=== PATIENT | female | born 1955 | race Asian ===

== ENCOUNTER → 2016-07-08 | Outpatient (CLI) | payer OTHER ==
--- NOTE | 2016-07-09 07:51 | MM ---
Reason for exam: screening (asymptomatic). Last mammogram was performed 2 years and 2 months ago. History: Patient is postmenopausal. Took estrogen for 1 month. Took progesterone for 1 month. Physical Findings: A clinical breast exam by your physician is recommended on an annual basis and results should be correlated with mammographic findings. MG Screening Mammo w CAD Bilateral CC and MLO view(s) were taken. Prior study comparison: May 20, 2014, bilateral MG screening mammo w CAD. July 26, 2011, bilateral digital screening mammo w/CAD. The breast tissue is heterogeneously dense. This may lower the sensitivity of mammography. There is no discrete abnormality. No significant changes when compared with prior studies. ASSESSMENT: Negative, BI-RAD 1 RECOMMENDATION: Routine screening mammogram of both breasts in 1 year.
== END | disposition home or self-care (01) ==
LOC: RADMAMWWP 08:45
PROVIDERS: ATTEND Family Medicine
DX: Z12.31 Encounter for screening mammogram for malignant neoplasm of breast (principal)

== ENCOUNTER → 2018-04-12 | Outpatient (CLI) | payer OTHER ==
--- NOTE | 2018-04-13 08:42 | MM ---
Reason for exam: screening (asymptomatic). Last mammogram was performed 1 year and 9 months ago. History: Patient is postmenopausal. Took estrogen for 1 month. Took progesterone for 1 month. Physical Findings: A clinical breast exam by your physician is recommended on an annual basis and results should be correlated with mammographic findings. MG Screening Mammo w CAD Bilateral CC and MLO view(s) were taken. Prior study comparison: July 08, 2016, bilateral MG screening mammo w CAD. May 20, 2014, bilateral MG screening mammo w CAD. The breast tissue is heterogeneously dense. This may lower the sensitivity of mammography. There is no discrete abnormality. ASSESSMENT: Negative, BI-RAD 1 RECOMMENDATION: Routine screening mammogram of both breasts in 1 year.
== END | disposition home or self-care (01) ==
LOC: RADMAMWWP 07:35
PROVIDERS: ATTEND Family Medicine
DX: Z12.31 Encounter for screening mammogram for malignant neoplasm of breast (principal)
CPT/HCPCS: 77067

== ENCOUNTER → 2020-04-29 | Outpatient (CLI) | payer OTHER ==
--- NOTE | 2020-05-05 10:43 | MM ---
Reason for exam: screening (asymptomatic). Last mammogram was performed 2 years and 1 month ago. History: Patient is postmenopausal. Took estrogen for 1 month. Took progesterone for 1 month. Physical Findings: A clinical breast exam by your physician is recommended on an annual basis and results should be correlated with mammographic findings. MG Screening Mammo w CAD Bilateral CC and MLO view(s) were taken. Prior study comparison: April 12, 2018, bilateral MG screening mammo w CAD. July 08, 2016, bilateral MG screening mammo w CAD. The breast tissue is heterogeneously dense. This may lower the sensitivity of mammography. No significant changes when compared with prior studies. ASSESSMENT: Negative, BI-RAD 1 RECOMMENDATION: Routine screening mammogram of both breasts in 1 year.
== END | disposition home or self-care (01) ==
LOC: RADMAMWWP 15:48
PROVIDERS: ATTEND Family Medicine
DX: Z12.31 Encounter for screening mammogram for malignant neoplasm of breast (principal)
CPT/HCPCS: 77067

== ENCOUNTER 2021-07-02 14:52 | Inpatient (IN) | payer OTHER ==
[2021-07-02] MEDS ORDERED: SODIUM CHLORIDE 0.9% 1,000 ML IV STA (15:12)
[2021-07-02] MEDS ORDERED: SODIUM CHLORIDE 0.9% 1,000 ML IV ONE ×3 (15:12→18:36)
[2021-07-02] MEDS ORDERED: VANCOMYCIN IV PER PHARMACY 1 EACH MISC MISCELLANE PRN (15:22)
[2021-07-02] MEDS ORDERED: CEFEPIME 2 GM in SODIUM CHLORIDE 0.9% 100 ML IVPB STA (15:24)
[2021-07-02] MEDS ORDERED: DEXTROSE 50% SYRINGE 50 ML IVP STA (15:25)
[2021-07-02] MEDS ORDERED: VANCOMYCIN 1,000 MG in SODIUM CHLORIDE 0.9% 250 ML IVPB STA (15:26)
[2021-07-02 15:35] LABS: Glucose,Whole Blood 57 mg/dL (75-99)
[2021-07-02 15:39] LABS: INR 0.9 (<1.2); Partial Thromboplastin Time 26.5 sec (22.0-30.0); Prothrombin Time 10.3 sec (9.0-12.0)
[2021-07-02 15:41] LABS: ALT 24 U/L (4-34); African American GFR (CKD) 13 (>60 ml/min/1.73 sqM); Albumin 3.2 g/dL (3.5-5.0); Anion Gap 16 mmol/L; Blood Urea Nitrogen 58 mg/dL (7-17); Calcium 8.3 mg/dL (8.4-10.2); Carbon Dioxide 19 mmol/L (22-30); Chloride 97 mmol/L (98-107); Glucose 60 mg/dL (74-99); Non-African American GFR(CKD) 12 (>60 ml/min/1.73 sqM); Sodium 132 mmol/L (137-145); Total Bilirubin 1.4 mg/dL (0.2-1.3); Total Protein 6.8 g/dL (6.3-8.2)
[2021-07-02 15:42] LABS: HGB 10.4 gm/dL (11.4-16.0); MCH 31.7 pg (25.0-35.0); MCHC 34.6 g/dL (31.0-37.0); MCV 91.4 fL (80.0-100.0); RBC 3.28 m/uL (3.80-5.40); RDW 13.7 % (11.5-15.5); WBC 14.1 k/uL (3.8-10.6)
[2021-07-02 15:43] LABS: Appearance,Urine Turbid (Clear); Bacteria,Urine Many /hpf; Bilirubin,Urine Negative (Negative); Blood,Urine Moderate (Negative); Color,Urine Yellow; Glucose,Urine (UA) Negative (Negative); Ketones,Urine Negative (Negative); Leukocyte Esterase,Urine Large (Negative); Mucus,Urine Rare /hpf; Nitrite,Urine Negative (Negative); Protein,Urine 2+ (Negative); RBC,Urine 4 /hpf (0-5); Urobilinogen,Urine <2.0 mg/dL (<2.0); WBC,Urine >182 /hpf (0-5)
[2021-07-02 15:44] LABS: Amphetamine Screen,Urine Not Detected (NotDetected); Barbiturate Screen,Urine Not Detected (NotDetected); Benzodiazepines Screen,Urine Detected (NotDetected); Cocaine Screen,Urine Not Detected (NotDetected); Methadone Screen, Urine Not Detected (NotDetected); Opiate Screen,Urine Not Detected (NotDetected); Oxycodone Screen, Urine Not Detected (NotDetected); Phencyclidine Screen,Urine Not Detected (NotDetected); Tricyclic Antidepressant,Urine Not Detected (NotDetected); Urn Cannabinoid Scrn Not Detected (NotDetected)
[2021-07-02 15:48] LABS: AST 60 U/L (14-36); Alcohol <10 mg/dL; Alkaline Phosphatase 746 U/L (38-126); Potassium 4.8 mmol/L (3.5-5.1)
[2021-07-02 15:50] LABS: Glucose,Whole Blood 181 mg/dL (75-99)
[2021-07-02 15:50] LABS: Lactic Acid, Venous 6.3 mmol/L (0.7-2.0)
[2021-07-02 15:51] LABS: Specific Gravity,Urine 1.016 (1.001-1.035)
[2021-07-02] MEDS: NOREPINEPHRINE 32 MG in SODIUM CHLORIDE 0.9% 218 ML IV ONE ×2 (16:03→19:17)
[2021-07-02 16:07] LABS: Influenza A Not Detected (Not Detectd); Influenza B Not Detected (Not Detectd)
--- NOTE | 2021-07-02 16:25 | XR ---
EXAMINATION TYPE: XR chest 1V portable DATE OF EXAM: 07/02/2021 COMPARISON: Chest x-ray 08/25/2012 HISTORY: Cough, weakness, line placement TECHNIQUE: Single frontal view of the chest is obtained. FINDINGS: There is no focal air space opacity, pleural effusion, or pneumothorax seen. The cardiac silhouette size is within normal limits. There is been interval placement of a right jugular central venous catheter, distal tip is in the right atrium. Aorta is dense. Lung lines are low and the patien t is rotated. The osseous structures are intact. IMPRESSION: No evident complication status post central venous catheter placement.
[2021-07-02 16:36] LABS: Glucose,Whole Blood 120 mg/dL (75-99)
[2021-07-02] MEDS ORDERED: ACETAMINOPHEN SUPPOSITORY 650 MG SUPP RECTAL PRN (16:47)
[2021-07-02 17:10] LABS: Band Neutrophils % 8 %; Lymphocytes # (M) 0.28 k/uL (1.0-4.8); Metamyelocytes # (M) 0.14 k/uL (0); Metamyelocytes % 1 %; Neutrophils % (M) 89 %; Nucleated Red Blood Cells 0 /100 WBC (0-0); Total Cells Counted 100
[2021-07-02 17:11] LABS: Platelet Count 93 k/uL (150-450)
[2021-07-02 17:21] LABS: Albumin 2.1 g/dL (3.5-5.0); Calcium 6.5 mg/dL (8.4-10.2); Potassium 3.3 mmol/L (3.5-5.1); Total Bilirubin 0.9 mg/dL (0.2-1.3); Total Protein 4.7 g/dL (6.3-8.2)
[2021-07-02] MEDS ORDERED: NALOXONE 0.4 MG/ML 1 ML VIAL IV PRN (17:58)
--- NOTE | 2021-07-02 18:01 | ED ---
General Adult HPI - General Chief complaint: Altered Mental Status Stated complaint: Altered mental status, weakness Source: EMS, RN notes reviewed, old records reviewed Mode of arrival: EMS Limitations: altered mental status - History of Present Illness Initial comments: Patient is a 66-year-old female with past medical history remarkable for Sjgren syndrome who presents to emergency department for altered mental status. EMS is unable to drive much history other than that she has been having altered mental status. Baseline she is alert and oriented 4. No focal complaints. He is presenting from home. Patient is unable to provide any history. She is moaning, and localizes to pain. She is moving all 4 extremities. Eyes open to pain. I was notified when the patient was in the room and found to be hypotensive with systolic pressures in the 50s and 60s. This is at the beginning of my shift. I immediately evaluated the patient. - Related Data Home Medications Medication Instructions Recorded Confirmed Cevimeline [Evoxac] 30 mg PO HS 05/31/14 07/02/21 Hydroxychloroquine Sulfate 200 mg PO BID 05/31/14 07/02/21 [Plaquenil] Multivitamins, Thera [Multivitamin] 1 tab PO DAILY 05/31/14 07/02/21 Omeprazole [PriLOSEC] 20 mg PO BID 05/31/14 07/02/21 amLODIPine [Norvasc] 5 mg PO DAILY 05/31/14 07/02/21 lisinopriL [Prinivil] 20 mg PO DAILY 05/31/14 07/02/21 Calcium Gummies (Unknown Strength) 2 tab PO DAILY 07/02/21 07/02/21 Carboxymethylcellulose Sodium 1 drop BOTH EYES QID PRN 07/02/21 07/02/21 [Refresh Tears] D-Methorphan/PE/Acetaminophen 1 cap PO DAILY PRN 07/02/21 07/02/21 [Vicks Dayquil Liquicaps] Doxycycline Hyclate 20mg 20 mg PO DAILY 07/02/21 07/02/21 Doxycycline Hyclate 20mg 20 mg PO HS PRN 07/02/21 07/02/21 Ibuprofen [Motrin Ib] 200 - 400 mg PO Q8H PRN 07/02/21 07/02/21 LORazepam [Ativan] 0.5 mg PO DAILY PRN 07/02/21 07/02/21 Magnesium 250 mg PO DAILY 07/02/21 07/02/21 [place]-3 Fatty Acids/Fish Oil [Fish 1 cap PO DAILY 07/02/21 07/02/21 Oil 1,000 mg Softgel] Potassium Chloride ER [K-Dur 20] 20 meq PO DAILY 07/02/21 07/02/21 cycloSPORINE 0.05% OPHTH SOLN 1 applic BOTH EYES BID 07/02/21 07/02/21 [Restasis] Allergies Allergy/AdvReac Type Severity Reaction Status Date / Time No Known Allergies Allergy Verified 07/02/21 18:20 Review of Systems ROS Statement: Those systems with pertinent positive or pertinent negative responses have been documented in the HPI. Unable to obtain secondary to patient's critical status. ROS Other: All systems not noted in ROS Statement are negative. Past Medical History Past Medical History: GERD/Reflux, Hypertension Additional Past Medical History / Comment(s): hx migraines, sjogrens, anemia History of Any Multi-Drug Resistant Organisms: None Reported Past Surgical History: Tubal Ligation Additional Past Surgical History / Comment(s): cataracts Past Anesthesia/Blood Transfusion Reactions: Motion Sickness Additional Past Anesthesia/Blood Transfusion Reaction / Comment(s): unknown family hx Smoking Status: Unknown if ever smoked Past Alcohol Use History: None Reported Past Drug Use History: None Reported General Exam - General Exam Comments Initial Comments: General: Appears dry, altered. HEAD: Normal with no signs of head trauma. EYES: PERRLA, EOMI, conjunctiva normal, no discharge. Pupils are 3 mm equal bilaterally. ENT: Hearing grossly intact, normal oropharynx. Dry mucous membranes RESPIRATORY: Clear breath sounds bilaterally. No wheezes, rales, or rhonchi. C/V: Tachycardic with a regular rhythm. S1 and S2 auscultated. Peripheral edema not appreciated. Peripheral pulses are 1-2+ and intact throughout. Hypotensive. ABD: Abd is soft, nontender, nondistended EXT: Normal range of motion, no obvious deformity SKIN: No rashes or lesions observed on exposed skin. NEURO: Alert but not oriented. Difficult to obtain accurate neurological exam. GCS of 10 initially. Limitations: altered mental status Course Vital Signs 07/02/21 07/02/21 07/02/21 14:59 15:05 15:29 Temperature 97.6 F Pulse Rate 112 H 112 H Respiratory 18 Rate Blood Pressure 86/44 74/53 98/51 O2 Sat by Pulse 92 L 96 Oximetry 07/02/21 07/02/21 07/02/21 15:40 15:43 15:44 Temperature Pulse Rate Respiratory Rate Blood Pressure 69/44 104/74 50/36 O2 Sat by Pulse Oximetry 07/02/21 07/02/21 07/02/21 16:16 16:20 16:25 Temperature Pulse Rate 92 95 Respiratory 16 18 Rate Blood Pressure 57/45 63/41 57/46 O2 Sat by Pulse 96 93 L Oximetry 07/02/21 07/02/21 07/02/21 17:00 17:30 18:00 Temperature Pulse Rate 111 H 115 H Respiratory Rate Blood Pressure 108/67 105/73 107/74 O2 Sat by Pulse 92 L 90 L 95 Oximetry 07/02/21 07/02/21 18:30 19:00 Temperature 97.6 F Pulse Rate 117 H 117 H Respiratory 24 Rate Blood Pressure 99/65 102/67 O2 Sat by Pulse 88 L 94 L Oximetry Procedures - Central Line Placement Right IJ Consent Obtained: emergent situation Patient Placed on Monitor/Pulse Ox: Yes Prep: mask, gown, gloves Central Line Prep: Chlorhexidine scrub, sterile drapes applied Local Anesthesia Used: Lidocaine 1% Amount of Anesthesia Used (mls): 5 Ultrasound Used for Placement: Yes Central Line Lumen Inserted: triple Bloods Obtained for Lab: Yes Central Line Position: good blood return, all ports aspirated, flushed, capped, sutured in place with nylon Dressing Applied: Tegaderm Post Procedure X-Ray: tip of catheter in good position Patient Tolerated Procedure: well Complications: none - Sepsis Sepsis Focused Exam #1 Time Sepsis Criteria Met: 13:15 Sepsis Focused Exam Date: 07/02/21 Sepsis Focused Exam Time: 18:00 Sepsis Focused Exam Complete: Yes Vital Signs & RN Notes Reviewed: Yes Capillary Refill: > 2 Seconds: Fingers, Toes Peripheral Pulses: Normal: Radial (R), Radial (L) Skin Color: Normal for Patient Respiratory Exam: normal lung sounds Cardiovascular Exam: tachycardia Medical Decision Making - Medical Decision Making Based on the patient's presentation and physical exam, does appear she is in septic shock. Patient's hypotensive, tachycardic, with a low-grade fever. Patient met septic criteria upon my evaluation. Blood cultures, lactate, infectious labs were all obtained in addition altered mental status laboratory studies. Patient was immediately administered to 1 L fluid boluses and started on a 130 mL an hour drip. Vancomycin and cefepime IV were administered empirically. Blood cultures were obtained and sent. Patient was moved to the trauma bay #2 from room 3. She'll be kept on a library monitor at this time. Following 2 L fluid bolus, patient's had minimal improvement and blood pressure. Therefore decision was made to place a central line. This was implied emergent. Right IJ central line was placed and confirmed placement with chest x-ray. Pressors were started through the central line. EKG revealed no signs of acute ischemia. Laboratory studies were remarkable for a mild hyponatremia of 132. Patient has an anion gap metabolic acidosis likely secondary to lactic acidosis of 6.3. Patient was initially hypoglycemic but th is improved following administration of D50 amp. Patient has an AK I with a BUN of 15 creatinine 3.5. Troponin is negative. Urinalysis is remarkable for an acute UTI, with large amount of leuk esterase, greater than 182 WBCs and many bacteria present. UDS is positive for benzos. Patient's flu, RSV, Covid negative. Patient has is a leukocytosis of 14.1. Patient's blood pressures are now improved at this time. She is on Levothroid drip and a pressures are low 100s systolic. Cold map is greater than 65. Family members present to the department at this time and updating me that she is having a 3 to four-day history of increased weakness, decreased by mouth intake. They're concerned for infection and called EMS for further evaluation.On reevaluation, patient's GCS is improved from approximately 13 at this time. She is more alert. She is talking with family members. Sepsis evaluate his completed by myself. At this time I believe it is best for the patient to be admitted to the ICU for septic shock requiring vasopressors. Family was in agreement this plan. I spoke with the ICU attending, Dr. Dudley and was in agreement this plan. Many attempts were made to contact [facility], without any call backs due to issues with the phone lines. I was eventually able to contact the admitting team, Dr. Mattson, who accepted the patient. Patient was admitted to the ICU in serious condition. Patient was taken up to the ICU following brain CT imaging. I spoke with Dr. Dudley regarding the findings, as it did show high density focus within the cortex the right frontal lobe laterally. It may represent laminar necrosis in the recommend follow-up MRI. I offered consult neurology at this time, however Dr. Dudley stated that they will evaluate the patient in the morning regarding this. I was in agreement this plan. - Lab Data Result diagrams: 07/02/21 15:15 07/02/21 15:57 Lab Results 07/02/21 07/02/21 07/02/21 Range/Units 15:15 15:15 15:15 WBC 14.1 H (3.8-10.6) k/uL RBC 3.28 L (3.80-5.40) m/uL Hgb 10.4 L (11.4-16.0) gm/dL Hct 30.0 L (34.0-46.0) % MCV 91.4 (80.0-100.0) fL MCH 31.7 (25.0-35.0) pg MCHC 34.6 (31.0-37.0) g/dL RDW 13.7 (11.5-15.5) % Plt Count 93 L (150-450) k/uL MPV 8.0 Neutrophils % (Manual) 89 % Band Neuts % (Manual) 8 % Lymphocytes % (Manual) 2 % Metamyelocytes % 1 % Neutrophils # (Manual) 13.60 H (1.3-7.7) k/uL Lymphocytes # (Manual) 0.28 L (1.0-4.8) k/uL Metamyelocytes # (Man) 0.14 H (0) k/uL Nucleated RBCs 0 (0-0) /100 WBC Manual Slide Review Performed PT 10.3 (9.0-12.0) sec INR 0.9 (<1.2) APTT 26.5 (22.0-30.0) sec Sodium (137-145) mmol/L Potassium (3.5-5.1) mmol/L Chloride (98-107) mmol/L Carbon Dioxide (22-30) mmol/L Anion Gap mmol/L BUN (7-17) mg/dL Creatinine (0.52-1.04) mg/dL Est GFR (CKD-EPI)AfAm (>60 ml/min/1.73 sqM) Est GFR (CKD-EPI)NonAf (>60 ml/min/1.73 sqM) Glucose (74-99) mg/dL POC Glucose (mg/dL) (75-99) mg/dL POC Glu Assistant Professor Of Biology ID Lactic Ac Sepsis Rflx Plasma Lactic Acid Kosta (0.7-2.0) mmol/L Calcium (8.4-10.2) mg/dL Total Bilirubin (0.2-1.3) mg/dL AST (14-36) U/L ALT (4-34) U/L Alkaline Phosphatase (38-126) U/L Ammonia (<30) umol/L Troponin I (0.000-0.034) ng/mL Total Protein (6.3-8.2) g/dL Albumin (3.5-5.0) g/dL Urine Color Yellow Urine Appearance Turbid H (Clear) Urine pH 6.0 (5.0-8.0) Ur Specific [place] 1.016 (1.001-1.035) Urine Protein 2+ H (Negative) Urine Glucose (UA) Negative (Negative) Urine Ketones Negative (Negative) Urine Blood Moderate H (Negative) Urine Nitrite Negative (Negative) Urine Bilirubin Negative (Negative) Urine Urobilinogen <2.0 (<2.0) mg/dL Ur Leukocyte Esterase Large H (Negative) Urine RBC 4 (0-5) /hpf Urine WBC >182 H (0-5) /hpf Urine WBC Clumps Moderate H (None) /hpf Urine Bacteria Many H (None) /hpf Urine Mucus Rare H (None) /hpf Urine Opiates Screen Not Detected (NotDetected) Ur Oxycodone Screen Not Detected (NotDetected) Urine Methadone Screen Not Detected (NotDetected) Ur Propoxyphene Screen Not Detected (NotDetected) Ur Barbiturates Screen Not Detected (NotDetected) U Tricyclic Antidepress Not Detected (NotDetected) Ur Phencyclidine Scrn Not Detected (NotDetected) Ur Amphetamines Screen Not Detected (NotDetected) U Methamphetamines Scrn Not Detected (NotDetected) U Benzodiazepines Scrn Detected H (NotDetected) Urine Cocaine Screen Not Detected (NotDetected) U Marijuana (THC) Screen Not Detected (NotDetected) Serum Alcohol mg/dL Influenza Type A (PCR) (Not Detectd) Influenza Type B (PCR) (Not Detectd) RSV (PCR) (Not Detectd) SARS-CoV-2 (PCR) (Not Detectd) 07/02/21 07/02/21 07/02/21 Range/Units 15:15 15:15 15:15 WBC (3.8-10.6) k/uL RBC (3.80-5.40) m/uL Hgb (11.4-16.0) gm/dL Hct (34.0-46.0) % MCV (80.0-100.0) fL MCH (25.0-35.0) pg MCHC (31.0-37.0) g/dL RDW (11.5-15.5) % Plt Count (150-450) k/uL MPV Neutrophils % (Manual) % Band Neuts % (Manual) % Lymphocytes % (Manual) % Metamyelocytes % % Neutrophils # (Manual) (1.3-7.7) k/uL Lymphocytes # (Manual) (1.0-4.8) k/uL Metamyelocytes # (Man) (0) k/uL Nucleated RBCs (0-0) /100 WBC Manual Slide Review PT (9.0-12.0) sec INR (<1.2) APTT (22.0-30.0) sec Sodium 132 L (137-145) mmol/L Potassium 4.8 (3.5-5.1) mmol/L Chloride 97 L (98-107) mmol/L Carbon Dioxide 19 L (22-30) mmol/L Anion Gap 16 mmol/L BUN 58 H (7-17) mg/dL Creatinine 3.85 H (0.52-1.04) mg/dL Est GFR (CKD-EPI)AfAm 13 (>60 ml/min/1.73 sqM) Est GFR (CKD-EPI)NonAf 12 (>60 ml/min/1.73 sqM) Glucose 60 L (74-99) mg/dL POC Glucose (mg/dL) (75-99) mg/dL POC Glu Assistant Professor Of Biology ID Lactic Ac Sepsis Rflx Plasma Lactic Acid Kosta 6.3 H* (0.7-2.0) mmol/L Calcium 8.3 L (8.4-10.2) mg/dL Total Bilirubin 1.4 H (0.2-1.3) mg/dL AST 60 H (14-36) U/L ALT 24 (4-34) U/L Alkaline Phosphatase 746 H (38-126) U/L Ammonia <9 (<30) umol/L Troponin I <0.012 (0.000-0.034) ng/mL Total Protein 6.8 (6.3-8.2) g/dL Albumin 3.2 L (3.5-5.0) g/dL Urine Color Urine Appearance (Clear) Urine pH (5.0-8.0) Ur Specific [place] (1.001-1.035) Urine Protein (Negative) Urine Glucose (UA) (Negative) Urine Ketones (Negative) Urine Blood (Negative) Urine Nitrite (Negative) Urine Bilirubin (Negative) Urine Urobilinogen (<2.0) mg/dL Ur Leukocyte Esterase (Negative) Urine RBC (0-5) /hpf Urine WBC (0-5) /hpf Urine WBC Clumps (None) /hpf Urine Bacteria (None) /hpf Urine Mucus (None) /hpf Urine Opiates Screen (NotDetected) Ur Oxycodone Screen (NotDetected) Urine Methadone Screen (NotDetected) Ur Propoxyphene Screen (NotDetected) Ur Barbiturates Screen (NotDetected) U Tricyclic Antidepress (NotDetected) Ur Phencyclidine Scrn (NotDetected) Ur Amphetamines Screen (NotDetected) U Methamphetamines Scrn (NotDetected) U Benzodiazepines Scrn (NotDetected) Urine Cocaine Screen (NotDetected) U Marijuana (THC) Screen (NotDetected) Serum Alcohol <10 mg/dL Influenza Type A (PCR) (Not Detectd) Influenza Type B (PCR) (Not Detectd) RSV (PCR) (Not Detectd) SARS-CoV-2 (PCR) (Not Detectd) 07/02/21 07/02/21 07/02/21 Range/Units 15:15 15:24 15:37 WBC (3.8-10.6) k/uL RBC (3.80-5.40) m/uL Hgb (11.4-16.0) gm/dL Hct (34.0-46.0) % MCV (80.0-100.0) fL MCH (25.0-35.0) pg MCHC (31.0-37.0) g/dL RDW (11.5-15.5) % Plt Count (150-450) k/uL MPV Neutrophils % (Manual) % Band Neuts % (Manual) % Lymphocytes % (Manual) % Metamyelocytes % % Neutrophils # (Manual) (1.3-7.7) k/uL Lymphocytes # (Manual) (1.0-4.8) k/uL Metamyelocytes # (Man) (0) k/uL Nucleated RBCs (0-0) /100 WBC Manual Slide Review PT (9.0-12.0) sec INR (<1.2) APTT (22.0-30.0) sec Sodium (137-145) mmol/L Potassium (3.5-5.1) mmol/L Chloride (98-107) mmol/L Carbon Dioxide (22-30) mmol/L Anion Gap mmol/L BUN (7-17) mg/dL Creatinine (0.52-1.04) mg/dL Est GFR (CKD-EPI)AfAm (>60 ml/min/1.73 sqM) Est GFR (CKD-EPI)NonAf (>60 ml/min/1.73 sqM) Glucose (74-99) mg/dL POC Glucose (mg/dL) 57 L 181 H (75-99) mg/dL POC Glu Assistant Professor Of Biology Magalis Aguilar Ashley Lactic Ac Sepsis Rflx Plasma Lactic Acid Kosta (0.7-2.0) mmol/L Calcium (8.4-10.2) mg/dL Total Bilirubin (0.2-1.3) mg/dL AST (14-36) U/L ALT (4-34) U/L Alkaline Phosphatase (38-126) U/L Ammonia (<30) umol/L Troponin I (0.000-0.034) ng/mL Total Protein (6.3-8.2) g/dL Albumin (3.5-5.0) g/dL Urine Color Urine Appearance (Clear) Urine pH (5.0-8.0) Ur Specific [place] (1.001-1.035) Urine Protein (Negative) Urine Glucose (UA) (Negative) Urine Ketones (Negative) Urine Blood (Negative) Urine Nitrite (Negative) Urine Bilirubin (Negative) Urine Urobilinogen (<2.0) mg/dL Ur Leukocyte Esterase (Negative) Urine RBC (0-5) /hpf Urine WBC (0-5) /hpf Urine WBC Clumps (None) /hpf Urine Bacteria (None) /hpf Urine Mucus (None) /hpf Urine Opiates Screen (NotDetected) Ur Oxycodone Screen (NotDetected) Urine Methadone Screen (NotDetected) Ur Propoxyphene Screen (NotDetected) Ur Barbiturates Screen (NotDetected) U Tricyclic Antidepress (NotDetected) Ur Phencyclidine Scrn (NotDetected) Ur Amphetamines Screen (NotDetected) U Methamphetamines Scrn (NotDetected) U Benzodiazepines Scrn (NotDetected) Urine Cocaine Screen (NotDetected) U Marijuana (THC) Screen (NotDetected) Serum Alcohol mg/dL Influenza Type A (PCR) Not Detected (Not Detectd) Influenza Type B (PCR) Not Detected (Not Detectd) RSV (PCR) Not Detected (Not Detectd) SARS-CoV-2 (PCR) Not Detected (Not Detectd) 07/02/21 07/02/21 07/02/21 Range/Units 15:50 15:57 16:33 WBC (3.8-10.6) k/uL RBC (3.80-5.40) m/uL Hgb (11.4-16.0) gm/dL Hct (34.0-46.0) % MCV (80.0-100.0) fL MCH (25.0-35.0) pg MCHC (31.0-37.0) g/dL RDW (11.5-15.5) % Plt Count (150-450) k/uL MPV Neutrophils % (Manual) % Band Neuts % (Manual) % Lymphocytes % (Manual) % Metamyelocytes % % Neutrophils # (Manual) (1.3-7.7) k/uL Lymphocytes # (Manual) (1.0-4.8) k/uL Metamyelocytes # (Man) (0) k/uL Nucleated RBCs (0-0) /100 WBC Manual Slide Review PT (9.0-12.0) sec INR (<1.2) APTT (22.0-30.0) sec Sodium 132 L (137-145) mmol/L Potassium 3.3 L (3.5-5.1) mmol/L Chloride 106 (98-107) mmol/L Carbon Dioxide 13 L (22-30) mmol/L Anion Gap 13 mmol/L BUN 49 H (7-17) mg/dL Creatinine 3.13 H (0.52-1.04) mg/dL Est GFR (CKD-EPI)AfAm 17 (>60 ml/min/1.73 sqM) Est GFR (CKD-EPI)NonAf 15 (>60 ml/min/1.73 sqM) Glucose 170 H (74-99) mg/dL POC Glucose (mg/dL) 120 H (75-99) mg/dL POC Glu Assistant Professor Of Biology ID Magalis Cardona Lactic Ac Sepsis Rflx Y Plasma Lactic Acid Kosta (0.7-2.0) mmol/L Calcium 6.5 L (8.4-10.2) mg/dL Total Bilirubin 0.9 (0.2-1.3) mg/dL AST 30 (14-36) U/L ALT 19 (4-34) U/L Alkaline Phosphatase 409 H (38-126) U/L Ammonia (<30) umol/L Troponin I (0.000-0.034) ng/mL Total Protein 4.7 L (6.3-8.2) g/dL Albumin 2.1 L (3.5-5.0) g/dL Urine Color Urine Appearance (Clear) Urine pH (5.0-8.0) Ur Specific Davison (1.001-1.035) Urine Protein (Negative) Urine Glucose (UA) (Negative) Urine Ketones (Negative) Urine Blood (Negative) Urine Nitrite (Negative) Urine Bilirubin (Negative) Urine Urobilinogen (<2.0) mg/dL Ur Leukocyte Esterase (Negative) Urine RBC (0-5) /hpf Urine WBC (0-5) /hpf Urine WBC Clumps (None) /hpf Urine Bacteria (None) /hpf Urine Mucus (None) /hpf Urine Opiates Screen (NotDetected) Ur Oxycodone Screen (NotDetected) Urine Methadone Screen (NotDetected) Ur Propoxyphene Screen (NotDetected) Ur Barbiturates Screen (NotDetected) U Tricyclic Antidepress (NotDetected) Ur Phencyclidine Scrn (NotDetected) Ur Amphetamines Screen (NotDetected) U Methamphetamines Scrn (NotDetected) U Benzodiazepines Scrn (NotDetected) Urine Cocaine Screen (NotDetected) U Marijuana (THC) Screen (NotDetected) Serum Alcohol mg/dL Influenza Type A (PCR) (Not Detectd) Influenza Type B (PCR) (Not Detectd) RSV (PCR) (Not Detectd) SARS-CoV-2 (PCR) (Not Detectd) - EKG Data -: EKG Interpreted by Me EKG Comments: 12-lead Electrocardiogram Interpretation Note EKG was reviewed and interpreted by myself. 12-lead ECG performed at 1741 is interpreted by me as revealing sinus tachycardia at a rate of 116 beats per minute. [place] is normal. [place] interval is 174 ms, QRS is 105, QTc is 381 ms.. There were no ST or T wave abnormalities to suggest myocardial ischemia or injury. R wave progression across the precordium was satisfactory. By my interpretation this EKG is non-diagnostic for acute ischemia. Critical Care Time Critical Care Time: Yes Total Critical Care Time: 35 Critical Care Time: Upon my evaluation, this patient had a high probability of imminent or life- threatening deterioration due to septic shock, UTI, which required my direct attention, intervention, and personal management. I have personally provided 35 minutes of critical care time exclusive of time spent on separately billable procedures. Time includes review of laboratory data, radiology results, discussion with consultants, and monitoring for potential decompensation. Interventions were performed as documented in my note. Disposition Clinical Impression: UTI (urinary tract infection), BRENNAN (acute kidney injury), Septic shock, Lactic acidosis, Altered mental status, History of Sjogren's disease Disposition: ADMITTED IP TO THIS HOSP Condition: Serious
--- NOTE | 2021-07-02 18:43 | P.CNPUL ---
History of Present Illness Consult date: 07/02/21 Chief complaint: Altered mental status, sepsis History of present illness: This is a 56-year-old male patient with known history of Sjogren's disease maintained on Plaquenil an outpatient basis, came into the emergency department because of altered mentation, lethargy, weakness, and immediately the patient was found to be hypotensive and at a time of her initial 11 her systolic blood pressure was in the 60s and later in the 70s. The patient was tachycardic. The patient was septic. Blood work showed a white cell count of 14.1 with a hemo globin of 10.4 and a platelet count of 93. Urine was at 49 with a creatinine of 3.1 consistent with an acute kidney injury. Serum bicarb was at 13 and the sodium level was at 132. Normal coagulation profile. Lactic acid level is at 6.3. Troponins are negative, ammonia level is less than 9, LFTs show a normal AST, normal ALT, alkaline phosphatase is slightly elevated at 746 with a total bilirubin level of 1.4. Urine drug screen is been negative.: The UA was abnormal and the patient had clumps of white cells along with elevated WBCs and it was positive for +2 protein, negative RBCs, large amount of urine leukocyte esterase was present. Based on all this, the patient was diagnosed and UTI. She was given immediately a total of 4 L of IV fluids. The abdomen was given by the emergency and I gave the fourth in the emergency as the patient was found to be still dry and hypotensive. A triple lumen catheter was established and patient was also started on pressors and norepinephrine infusion is running currently at 0.2 mcg/kg per minute. Patient was given a combination of antibiotics including cefepime and vancomycin. No flank pain. No CVA angle tenderness. No recurrent UTIs. No hematuria. No history of nephrolithiasis. Michaud catheter in place and the patient is producing urine output. Mental status is gradually improving. The chest x-ray shows no focal consolidation. The right IJ triple-lumen catheter was noted to be in place. Review of Systems ROS unobtainable: due to mental status Past Medical History Past Medical History: GERD/Reflux, Hypertension Additional Past Medical History / Comment(s): hx migraines, sjogrens, anemia History of Any Multi-Drug Resistant Organisms: None Reported Past Surgical History: Tubal Ligation Additional Past Surgical History / Comment(s): cataracts Past Anesthesia/Blood Transfusion Reactions: Motion Sickness Additional Past Anesthesia/Blood Transfusion Reaction / Comment(s): unknown family hx Smoking Status: Unknown if ever smoked Past Alcohol Use History: None Reported Past Drug Use History: None Reported Medications and Allergies Home Medications Medication Instructions Recorded Confirmed Type Cevimeline [Evoxac] 30 mg PO HS 05/31/14 05/31/14 History Claritin D(Dose Unknown) 1 tab PO DAILY PRN 05/31/14 06/03/14 History Hydroxychloroquine Sulfate 200 mg PO BID 05/31/14 05/31/14 History [Plaquenil] Multivitamins, Thera [Multivitamin] 1 each PO DAILY 05/31/14 05/31/14 History Omeprazole [PriLOSEC] 20 mg PO DAILY 05/31/14 05/31/14 History amLODIPine [Norvasc] 5 mg PO DAILY 05/31/14 05/31/14 History lisinopriL [Prinivil] 20 mg PO DAILY 05/31/14 05/31/14 History Allergies Allergy/AdvReac Type Severity Reaction Status Date / Time No Known Allergies Allergy Verified 07/02/21 18:20 Physical Exam Vitals: Vital Signs Temp Pulse Resp BP Pulse Ox 07/02/21 18:30 117 H 99/65 88 L 07/02/21 18:00 115 H 107/74 95 07/02/21 17:30 105/73 90 L 07/02/21 17:00 111 H 108/67 92 L 07/02/21 16:25 57/46 07/02/21 16:20 95 18 63/41 93 L 07/02/21 16:16 92 16 57/45 96 07/02/21 15:44 50/36 07/02/21 15:43 104/74 07/02/21 15:40 69/44 07/02/21 15:29 98/51 96 07/02/21 15:05 112 H 74/53 07/02/21 14:59 97.6 F 112 H 18 86/44 92 L Intake and Output 07/02/21 07/02/21 07/02/21 06:59 14:59 22:59 Intake Total 0.599 Balance 0.599 Intake: Intake, IV Titration 0.599 Amount Norepinephrine 32 mg In 0.599 Sodium Chloride 0.9% 218 ml @ 0.05 MCG/KG/MIN 1. 116 mls/hr IV .Q24H ONE Rx#:[id number] Other: Weight 47.627 kg Gen. appearance the patient is lethargic, is getting progressively more arousable as the patient is being resuscitated IV fluids. Head exam was generally normal. There was no scleral icterus or corneal arcus. Mucous membranes were dry Neck was supple and without jugular venous distension, thyromegaly, or carotid bruits. Carotids were easily palpable bilaterally. There was no adenopathy. Patient is a right IJ triple-lumen catheter in place. Lungs were clear to auscultation and percussion, and with normal diaphragmatic excursion. No wheezes or rales were noted. Cardiac exam revealed the PMI to be normally situated and sized. The rhythm was regular and no extrasystoles were noted during several minutes of auscultation. The first and second heart sounds were normal and physiologic splitting of the second heart sound was noted. There were no murmurs, rubs, clicks, or gallops. Abdominal exam revealed normal bowel sounds. The abdomen was soft, non-tender, and without masses, organomegaly, or appreciable enlargement of the abdominal aorta. Examination of the extremities revealed easily palpable radial, femoral and pedal pulses. There was no cyanosis, clubbing or edema. Examination of the skin revealed no evidence of significant rashes, suspicious appearing nevi or other concerning lesions. Neurologically, the patient is awake and alert and the patient does not have any focal neurological deficit. Cranial nerves are essentially intact. She is lethargic and confused. She is moving all 4 extremities without any limitation. Results - Laboratory Findings CBC and BMP: 07/02/21 15:15 07/02/21 15:57 PT/INR, D-dimer PT 10.3 sec (9.0-12.0) 07/02/21 15:15 INR 0.9 (<1.2) 07/02/21 15:15 Abnormal lab findings: Abnormal Labs 07/02/21 07/02/21 07/02/21 15:15 15:15 15:15 WBC 14.1 H RBC 3.28 L Hgb 10.4 L Hct 30.0 L Plt Count 93 L Neutrophils # (Manual) 13.60 H Lymphocytes # (Manual) 0.28 L Metamyelocytes # (Man) 0.14 H Sodium 132 L Potassium Chloride 97 L Carbon Dioxide 19 L BUN 58 H Creatinine 3.85 H Glucose 60 L POC Glucose (mg/dL) Plasma Lactic Acid Kosta Calcium 8.3 L Total Bilirubin 1.4 H AST 60 H Alkaline Phosphatase 746 H Total Protein Albumin 3.2 L Urine Appearance Turbid H Urine Protein 2+ H Urine Blood Moderate H Ur Leukocyte Esterase Large H Urine WBC >182 H Urine WBC Clumps Moderate H Urine Bacteria Many H Urine Mucus Rare H U Benzodiazepines Scrn Detected H 07/02/21 07/02/21 07/02/21 15:15 15:24 15:37 WBC RBC Hgb Hct Plt Count Neutrophils # (Manual) Lymphocytes # (Manual) Metamyelocytes # (Man) Sodium Potassium Chloride Carbon Dioxide BUN Creatinine Glucose POC Glucose (mg/dL) 57 L 181 H Plasma Lactic Acid Kosta 6.3 H* Calcium Total Bilirubin AST Alkaline Phosphatase Total Protein Albumin Urine Appearance Urine Protein Urine Blood Ur Leukocyte Esterase Urine WBC Urine WBC Clumps Urine Bacteria Urine Mucus U Benzodiazepines Scrn 07/02/21 07/02/21 15:57 16:33 WBC RBC Hgb Hct Plt Count Neutrophils # (Manual) Lymphocytes # (Manual) Metamyelocytes # (Man) Sodium 132 L Potassium 3.3 L Chloride Carbon Dioxide 13 L BUN 49 H Creatinine 3.13 H Glucose 170 H POC Glucose (mg/dL) 120 H Plasma Lactic Acid Kosta Calcium 6.5 L Total Bilirubin AST Alkaline Phosphatase 409 H Total Protein 4.7 L Albumin 2.1 L Urine Appearance Urine Protein Urine Blood Ur Leukocyte Esterase Urine WBC Urine WBC Clumps Urine Bacteria Urine Mucus U Benzodiazepines Scrn - Diagnostic Findings Chest x-ray: image reviewed Assessment and Plan Plan: 1 septic shock secondary to a UTI 2 profound hypotension secondary to sepsis, received a total of 4 L of IV fluids and the patient is currently on pressors. Triple-lumen catheter was establishe d. 3 altered mental status secondary to above 4 acute kidney injury secondary to above, this is a secondary to sepsis, hypotension, could be also related to use of vivienne inhibitors on outpatient basis. 5 severe lactic acidosis with anion gap metabolic acidosis secondary to above 6 leukocytosis, acute secondary to above 7 history of Sjogren's disease, sicca syndrome maintained on Plaquenil 8 hypertension 9 history of migraines Plan Admit this patient to the intensive care unit Continue fluid resuscitation. A total of 4 L of IV fluid was given and the patient will be maintained on a maintenance of 130 mL an hour normal saline Continue same antibiotic coverage essentially cefepime, pending further urine cultures and blood cultures titrate norepinephrine dose to maintain a mean arterial pressure above 65 Obtain ultrasound of the kidneys without hydronephrosis Urine cultures Blood cultures Monitor mentation Awaiting results of the CAT scan of the brain Admitted to the ICU and will continue to follow. Time with Patient: Greater than 30
[2021-07-02] MEDS ORDERED: CEFEPIME 2 GM in SODIUM CHLORIDE 0.9% 100 ML IVPB ONE (19:00)
--- NOTE | 2021-07-02 19:07 | CT ---
EXAMINATION TYPE: CT brain wo con CT DLP: 1114.4 mGycm, Automated exposure control for dose reduction was used. DATE OF EXAM: 07/02/2021 6:22 PM COMPARISON: None CLINICAL INDICATION:Female, 66 years old with history of Altered mental status, AMS, unresponsive TECHNIQUE: Brain: Multiple axial CT images of the brain were obtained without IV contrast. FINDINGS: Brain: Extra-axial spaces: No extra-axial fluid collections. Ventricular system: Within normal limits Cerebral parenchyma: High density focus measuring 4 x 5 mm and is felt to be within the cortex of the right frontal lobe laterally. This is best appreciated on image 36 series 2021. No acute or mass eff ect. The remainder of the zarate-white junctions are well differentiated. Scattered hypoattenuating ar eas are seen within the white matter. Cerebellum: Unremarkable. Mass effect: No evidence of midline shift. Intracranial vasculature: Atherosclerotic calcifications of the intracranial vessels. Soft tissues: Normal. Calvarium/osseous structures: No depressed skull fracture. Paranasal sinuses and mastoid air cells: Visualized orbits: Bilateral aphakia IMPRESSION: 1. High density focus within the cortex of the right frontal lobe laterally. This may represent joey ar necrosis. This can be further evaluated with MRI. Comparisons with priors would be of benefit if m todd available. 2. Nonspecific white matter changes, likely secondary to chronic small vessel ischemic disease.
[2021-07-02 19:10] LABS: Glucose,Whole Blood 93 mg/dL (75-99)
[2021-07-02] MEDS ORDERED: SODIUM CHLORIDE 0.9% IV ONE (19:30)
[2021-07-02] MEDS ORDERED: NOREPINEPHRINE IV ONE (19:30)
[2021-07-02] MEDS: LORazepam 2 MG/ML INJ IV PRN (22:01)
[2021-07-02] MEDS ORDERED: NOREPINEPHRINE 32 MG in SODIUM CHLORIDE 0.9% 218 ML IV SCH (23:00)
[2021-07-02] MEDS ORDERED: SODIUM CHLORIDE 0.9% 1,000 ML IV SCH (23:45)
[2021-07-03] MEDS ORDERED: CEFEPIME 2 GM in SODIUM CHLORIDE 0.9% 100 ML IVPB SCH ×2
[2021-07-03] MEDS: LORazepam 2 MG/ML INJ IV PRN (00:25)
[2021-07-03 00:49] VITALS: TEMP 98
[2021-07-03 02:02] VITALS: BP 81/60; PULSE 133; RESP 47
[2021-07-03] MEDS ORDERED: DEXTROSE 50% SYRINGE 50 ML IVP ONE ×2 (02:29→02:55)
[2021-07-03] MEDS ORDERED: EPINEPHrine 10 ML SYRINGE (0.1 MG/ML) ONE ×3 (02:29→03:29)
[2021-07-03] MEDS ORDERED: SODIUM BICARB 8.4% 50 ML SYR (1 MEQ/ML) ONE (02:29)
[2021-07-03 02:35] LABS: Glucose,Whole Blood <20 mg/dL (75-99)
[2021-07-03 02:40] LABS: Glucose,Whole Blood 23 mg/dL (75-99)
[2021-07-03 02:48] LABS: Glucose,Whole Blood <20 mg/dL (75-99)
[2021-07-03] MEDS ORDERED: Potassium Replacement Protocol 1 EACH MISC MISCELLANE PRN (02:50)
[2021-07-03 02:55] LABS: Glucose,Whole Blood <20 mg/dL (75-99)
[2021-07-03 02:57] LABS: Glucose,Whole Blood 239 mg/dL (75-99)
[2021-07-03] MEDS ORDERED: POTASSIUM CHLORIDE 20 MEQ in WATER FOR INJECTION 1 100ML.BAG IVPB SCH (03:00)
[2021-07-03 03:23] LABS: Allen Test Performed? Yes
--- NOTE | 2021-07-03 03:24 | XR ---
EXAMINATION TYPE: XR chest 1V portable DATE OF EXAM: 07/03/2021 COMPARISON: Yesterday HISTORY: Respiratory failure TECHNIQUE: Single view FINDINGS: There is moderate diffuse pulmonary edema. There is endotracheal tube which is 1.6 cm into the right mainstem bronchus. Heart is top normal in size. There is nasogastric tube in the stomach. T here is right jugular catheter with tip in the right atrium. There are chest leads. No pneumothorax. IMPRESSION: Moderately severe pulmonary airspace edema which is new compared to yesterday. Endotrache al tube is in the right mainstem bronchus.
[2021-07-03 03:25] LABS: HCT 30.8 % (34.0-46.0); HGB 9.5 gm/dL (11.4-16.0); Hypochromasia Marked; MCH 32.4 pg (25.0-35.0); MCHC 30.9 g/dL (31.0-37.0); Macrocytosis Slight; Mean Platelet Volume 10.2; RBC 2.94 m/uL (3.80-5.40); RDW 13.5 % (11.5-15.5); WBC 16.4 k/uL (3.8-10.6)
[2021-07-03 03:27] LABS: Glucose,Whole Blood <20 mg/dL (75-99)
--- NOTE | 2021-07-03 03:28 | XR ---
EXAMINATION TYPE: XR chest 1V portable DATE OF EXAM: 07/03/2021 COMPARISON: Today HISTORY: Respiratory failure TECHNIQUE: Single view FINDINGS: The endotracheal tube is 1.8 cm from the zulema in better position. There is severe pulmona ry airspace edema. There is nasogastric tube in the stomach. There is with tip in right atrium. No pn eumothorax. There are chest leads. There is slight blunting of the left costophrenic angle. IMPRESSION: Severe pulmonary edema. There is small left pleural effusion which is increased compared to exam 20 minutes ago.
[2021-07-03] MEDS ORDERED: SODIUM CHLORIDE 0.9% 50 ML with VASOPRESSIN 20 UNIT IVPB SCH ×2 (03:30)
[2021-07-03 03:31] LABS: ABG HCO3 7 mmol/L (21-25); ABG PCO2 40 mmHg (35-45); ABG PH 6.85 (7.35-7.45); ABG PO2 50 mmHg (83-108); ABG TCO2 8 mmol/L (19-24)
[2021-07-03 03:44] LABS: MCV 104.7 fL (80.0-100.0)
[2021-07-03 03:45] LABS: Platelet Count 24 k/uL (150-450)
[2021-07-03 04:10] LABS: Calcium 6.5 mg/dL (8.4-10.2); Magnesium 2.9 mg/dL (1.6-2.3); Total Bilirubin 1.6 mg/dL (0.2-1.3); Total Protein 4.7 g/dL (6.3-8.2)
--- NOTE | 2021-07-03 04:10 | P.EN ---
Code Blue Note Activated at 022. Notified via paging system at [id number]. Arrived at the scene shortly after. Reviewed the chart and discussed the case with the RN. The patient was admitted to the hospital for Septic shock secondary to UTI. She was started on IV pressors and received multiple IVF boluses. Whilst in the ICU, the patient developed bradycardia and susbequently PEA for which ACLS protocol was initiated. High quality CPR was performed. The patient was noted to be in PEA. CPR was initially performed from 228 unti ROSC at 025. She subsequently developed asystole again at 318, after which CPR was eventually halted at 329 and the patient was declared . The patient was also noted to be hypoglycemic and was given d50 IVP x 3 with CBG 239 following ROSC. I spoke with the family in person following the initial ROSC and subsequently after the patient's . I also discussed the case with the clinic scheduler following the initial ROSC. She received a total of IVP Epinephrine x 10, Sodium bicarbonate x 2, and d50 x 3. Please refer to the code sheet for further details. The primary team and clinic scheduler were notified. Total time spent providing critical care for this patient: 70 minutes
[2021-07-03 04:31] LABS: Band Neutrophils % 19 %; Eosinophils # (M) 0.16 k/uL (0-0.7); Lymphocytes # (M) 3.28 k/uL (1.0-4.8); Monocytes # (M) 0.98 k/uL (0-1.0); Neutrophils % (M) 55 %; Nucleated Red Blood Cells 0 /100 WBC (0-0); Total Cells Counted 200
[2021-07-03 04:32] LABS: Crenated RBC Present; Toxic Vacuolation Present
[2021-07-03] MEDS ORDERED: CEFEPIME 1 GM in SODIUM CHLORIDE 0.9% 50 ML IVPB SCH (07:00)
[2021-07-03] MEDS ORDERED: CHLORHEXIDINE GLUCONATE 15 ML CUP MUCOUS MEM SCH (09:00)
[2021-07-03] MEDS ORDERED: VANCOMYCIN 750 MG in SODIUM CHLORIDE 0.9% 250 ML IVPB ONE (12:00)
--- NOTE | 2021-07-03 12:56 | P.HPIM ---
History of Present Illness H&P Date: 07/03/21 Chief Complaint: Septic Shock PATIENT PRIOR TO BEING EXAMINED Past Medical History Past Medical History: GERD/Reflux, Hypertension Additional Past Medical History / Comment(s): hx migraines, sjogrens, anemia History of Any Multi-Drug Resistant Organisms: None Reported Past Surgical History: Tubal Ligation Additional Past Surgical History / Comment(s): cataracts Past Anesthesia/Blood Transfusion Reactions: Motion Sickness Additional Past Anesthesia/Blood Transfusion Reaction / Comment(s): unknown family hx Smoking Status: Unknown if ever smoked Past Alcohol Use History: None Reported Past Drug Use History: None Reported Medications and Allergies Home Medications Medication Instructions Recorded Confirmed Type Cevimeline [Evoxac] 30 mg PO HS 05/31/14 07/02/21 History Hydroxychloroquine Sulfate 200 mg PO BID 05/31/14 07/02/21 History [Plaquenil] Multivitamins, Thera [Multivitamin] 1 tab PO DAILY 05/31/14 07/02/21 History Omeprazole [PriLOSEC] 20 mg PO BID 05/31/14 07/02/21 History amLODIPine [Norvasc] 5 mg PO DAILY 05/31/14 07/02/21 History lisinopriL [Prinivil] 20 mg PO DAILY 05/31/14 07/02/21 History Calcium Gummies (Unknown Strength) 2 tab PO DAILY 07/02/21 07/02/21 History Carboxymethylcellulose Sodium 1 drop BOTH EYES QID PRN 07/02/21 07/02/21 History [Refresh Tears] D-Methorphan/PE/Acetaminophen 1 cap PO DAILY PRN 07/02/21 07/02/21 History [Vicks Dayquil Liquicaps] Doxycycline Hyclate 20mg 20 mg PO DAILY 07/02/21 07/02/21 History Doxycycline Hyclate 20mg 20 mg PO HS PRN 07/02/21 07/02/21 History Ibuprofen [Motrin Ib] 200 - 400 mg PO Q8H PRN 07/02/21 07/02/21 History LORazepam [Ativan] 0.5 mg PO DAILY PRN 07/02/21 07/02/21 History Magnesium 250 mg PO DAILY 07/02/21 07/02/21 History [place]-3 Fatty Acids/Fish Oil [Fish 1 cap PO DAILY 07/02/21 07/02/21 History Oil 1,000 mg Softgel] Potassium Chloride ER [K-Dur 20] 20 meq PO DAILY 07/02/21 07/02/21 History cycloSPORINE 0.05% OPHTH SOLN 1 applic BOTH EYES BID 07/02/21 07/02/21 History [Restasis] Allergies Allergy/AdvReac Type Severity Reaction Status Date / Time No Known Allergies Allergy Verified 07/02/21 18:20 Physical Exam Vitals: Vital Signs Temp Pulse Pulse Resp BP BP Pulse Ox 07/03/21 02:00 133 H 47 H 81/60 89 L 07/03/21 01:30 131 H 45 H 79/57 94 L 07/03/21 01:00 130 H 43 H 81/58 95 07/03/21 00:30 125 H 39 H 83/61 93 L 07/03/21 00:00 98.0 F 122 H 32 H 90/58 93 L 07/02/21 23:40 121 H 29 H 115/28 93 L 07/02/21 23:30 121 H 34 H 100/58 93 L 07/02/21 23:00 120 H 28 H 91/53 96 07/02/21 22:30 123 H 40 H 96/58 95 07/02/21 22:00 118 H 19 109/64 98 07/02/21 21:53 95 20 111/74 96 07/02/21 21:30 123 H 23 98/69 96 07/02/21 21:00 120 H 27 H 113/62 96 07/02/21 20:30 117 H 18 100/64 93 L 07/02/21 20:00 97.3 F L 117 H 120 H 25 H 103/69 92 L 07/02/21 19:30 118 H 15 115/76 94 L 07/02/21 19:00 97.6 F 117 H 24 102/67 94 L 07/02/21 18:30 117 H 99/65 88 L 07/02/21 18:00 115 H 107/74 95 07/02/21 17:30 105/73 90 L 07/02/21 17:00 111 H 108/67 92 L 07/02/21 16:25 57/46 07/02/21 16:20 95 18 63/41 93 L 07/02/21 16:16 92 16 57/45 96 07/02/21 15:44 50/36 07/02/21 15:43 104/74 07/02/21 15:40 69/44 07/02/21 15:29 98/51 96 07/02/21 15:05 112 H 74/53 07/02/21 14:59 97.6 F 112 H 18 86/44 92 L Intake and Output 07/02/21 07/03/21 07/03/21 22:59 06:59 14:59 Intake Total 603.175 535.100 Output Total 875 105 Balance -271.825 430.100 Intake: IV 590 520 Cefepime 2 gm In Sodium 200 Chloride 0.9% 100 ml @ 200 mls/hr IVPB ONCE ONE Rx#:[id number] Sodium Chloride 0.9% 1, 390 520 000 ml @ 130 mls/hr IV . Q7H42M STA Rx#:[id number] Intake, IV Titration 13.175 15.100 Amount Norepinephrine 32 mg In 13.175 Sodium Chloride 0.9% 218 ml @ 0.05 MCG/KG/MIN 1. 116 mls/hr IV .Q24H ONE Rx#:[id number] Norepinephrine 32 mg In 15.100 Sodium Chloride 0.9% 218 ml @ 0.2 MCG/KG/MIN 4.465 mls/hr IV .Q24H [facility] Rx#: [id number] Output: Urine 875 105 Other: Voiding Method Indwelling Catheter Indwelling Catheter Weight 47.627 kg Results CBC & Chem 7: 07/03/21 03:09 07/03/21 03:09 Labs: Abnormal Lab Results - Last 24 Hours (Table) 07/02/21 07/02/21 07/02/21 Range/Units 15:15 15:15 15:15 WBC 14.1 H (3.8-10.6) k/uL RBC 3.28 L (3.80-5.40) m/uL Hgb 10.4 L (11.4-16.0) gm/dL Hct 30.0 L (34.0-46.0) % MCV (80.0-100.0) fL MCHC (31.0-37.0) g/dL Plt Count 93 L (150-450) k/uL Neutrophils # (Manual) 13.60 H (1.3-7.7) k/uL Lymphocytes # (Manual) 0.28 L (1.0-4.8) k/uL Metamyelocytes # (Man) 0.14 H (0) k/uL ABG pH (7.35-7.45) ABG pO2 (83-108) mmHg ABG HCO3 (21-25) mmol/L ABG Total CO2 (19-24) mmol/L ABG O2 Saturation (94-97) % Sodium 132 L (137-145) mmol/L Potassium (3.5-5.1) mmol/L Chloride 97 L (98-107) mmol/L Carbon Dioxide 19 L (22-30) mmol/L BUN 58 H (7-17) mg/dL Creatinine 3.85 H (0.52-1.04) mg/dL Glucose 60 L (74-99) mg/dL POC Glucose (mg/dL) (75-99) mg/dL Plasma Lactic Acid Kosta (0.7-2.0) mmol/L Calcium 8.3 L (8.4-10.2) mg/dL Magnesium (1.6-2.3) mg/dL Total Bilirubin 1.4 H (0.2-1.3) mg/dL AST 60 H (14-36) U/L ALT (4-34) U/L Alkaline Phosphatase 746 H (38-126) U/L Total Protein (6.3-8.2) g/dL Albumin 3.2 L (3.5-5.0) g/dL Urine Appearance Turbid H (Clear) Urine Protein 2+ H (Negative) Urine Blood Moderate H (Negative) Ur Leukocyte Esterase Large H (Negative) Urine WBC >182 H (0-5) /hpf Urine WBC Clumps Moderate H (None) /hpf Urine Bacteria Many H (None) /hpf Urine Mucus Rare H (None) /hpf U Benzodiazepines Scrn Detected H (NotDetected) 07/02/21 07/02/21 07/02/21 Range/Units 15:15 15:24 15:37 WBC (3.8-10.6) k/uL RBC (3.80-5.40) m/uL Hgb (11.4-16.0) gm/dL Hct (34.0-46.0) % MCV (80.0-100.0) fL MCHC (31.0-37.0) g/dL Plt Count (150-450) k/uL Neutrophils # (Manual) (1.3-7.7) k/uL Lymphocytes # (Manual) (1.0-4.8) k/uL Metamyelocytes # (Man) (0) k/uL ABG pH (7.35-7.45) ABG pO2 (83-108) mmHg ABG HCO3 (21-25) mmol/L ABG Total CO2 (19-24) mmol/L ABG O2 Saturation (94-97) % Sodium (137-145) mmol/L Potassium (3.5-5.1) mmol/L Chloride (98-107) mmol/L Carbon Dioxide (22-30) mmol/L BUN (7-17) mg/dL Creatinine (0.52-1.04) mg/dL Glucose (74-99) mg/dL POC Glucose (mg/dL) 57 L 181 H (75-99) mg/dL Plasma Lactic Acid Kosta 6.3 H* (0.7-2.0) mmol/L Calcium (8.4-10.2) mg/dL Magnesium (1.6-2.3) mg/dL Total Bilirubin (0.2-1.3) mg/dL AST (14-36) U/L ALT (4-34) U/L Alkaline Phosphatase (38-126) U/L Total Protein (6.3-8.2) g/dL Albumin (3.5-5.0) g/dL Urine Appearance (Clear) Urine Protein (Negative) Urine Blood (Negative) Ur Leukocyte Esterase (Negative) Urine WBC (0-5) /hpf Urine WBC Clumps (None) /hpf Urine Bacteria (None) /hpf Urine Mucus (None) /hpf U Benzodiazepines Scrn (NotDetected) 07/02/21 07/02/21 07/02/21 Range/Units 15:57 16:33 19:23 WBC (3.8-10.6) k/uL RBC (3.80-5.40) m/uL Hgb (11.4-16.0) gm/dL Hct (34.0-46.0) % MCV (80.0-100.0) fL MCHC (31.0-37.0) g/dL Plt Count (150-450) k/uL Neutrophils # (Manual) (1.3-7.7) k/uL Lymphocytes # (Manual) (1.0-4.8) k/uL Metamyelocytes # (Man) (0) k/uL ABG pH (7.35-7.45) ABG pO2 (83-108) mmHg ABG HCO3 (21-25) mmol/L ABG Total CO2 (19-24) mmol/L ABG O2 Saturation (94-97) % Sodium 132 L (137-145) mmol/L Potassium 3.3 L (3.5-5.1) mmol/L Chloride (98-107) mmol/L Carbon Dioxide 13 L (22-30) mmol/L BUN 49 H (7-17) mg/dL Creatinine 3.13 H (0.52-1.04) mg/dL Glucose 170 H (74-99) mg/dL POC Glucose (mg/dL) 120 H (75-99) mg/dL Plasma Lactic Acid Kosta 4.0 H* (0.7-2.0) mmol/L Calcium 6.5 L (8.4-10.2) mg/dL Magnesium (1.6-2.3) mg/dL Total Bilirubin (0.2-1.3) mg/dL AST (14-36) U/L ALT (4-34) U/L Alkaline Phosphatase 409 H (38-126) U/L Total Protein 4.7 L (6.3-8.2) g/dL Albumin 2.1 L (3.5-5.0) g/dL Urine Appearance (Clear) Urine Protein (Negative) Urine Blood (Negative) Ur Leukocyte Esterase (Negative) Urine WBC (0-5) /hpf Urine WBC Clumps (None) /hpf Urine Bacteria (None) /hpf Urine Mucus (None) /hpf U Benzodiazepines Scrn (NotDetected) 07/02/21 07/03/21 07/03/21 Range/Units 22:12 01:28 02:33 WBC (3.8-10.6) k/uL RBC (3.80-5.40) m/uL Hgb (11.4-16.0) gm/dL Hct (34.0-46.0) % MCV (80.0-100.0) fL MCHC (31.0-37.0) g/dL Plt Count (150-450) k/uL Neutrophils # (Manual) (1.3-7.7) k/uL Lymphocytes # (Manual) (1.0-4.8) k/uL Metamyelocytes # (Man) (0) k/uL ABG pH (7.35-7.45) ABG pO2 (83-108) mmHg ABG HCO3 (21-25) mmol/L ABG Total CO2 (19-24) mmol/L ABG O2 Saturation (94-97) % Sodium (137-145) mmol/L Potassium (3.5-5.1) mmol/L Chloride (98-107) mmol/L Carbon Dioxide (22-30) mmol/L BUN (7-17) mg/dL Creatinine (0.52-1.04) mg/dL Glucose (74-99) mg/dL POC Glucose (mg/dL) <20 L (75-99) mg/dL Plasma Lactic Acid Kosta 6.0 H* 7.0 H* (0.7-2.0) mmol/L Calcium (8.4-10.2) mg/dL Magnesium (1.6-2.3) mg/dL Total Bilirubin (0.2-1.3) mg/dL AST (14-36) U/L ALT (4-34) U/L Alkaline Phosphatase (38-126) U/L Total Protein (6.3-8.2) g/dL Albumin (3.5-5.0) g/dL Urine Appearance (Clear) Urine Protein (Negative) Urine Blood (Negative) Ur Leukocyte Esterase (Negative) Urine WBC (0-5) /hpf Urine WBC Clumps (None) /hpf Urine Bacteria (None) /hpf Urine Mucus (None) /hpf U Benzodiazepines Scrn (NotDetected) 07/03/21 07/03/21 07/03/21 Range/Units 02:38 02:47 02:54 WBC (3.8-10.6) k/uL RBC (3.80-5.40) m/uL Hgb (11.4-16.0) gm/dL Hct (34.0-46.0) % MCV (80.0-100.0) fL MCHC (31.0-37.0) g/dL Plt Count (150-450) k/uL Neutrophils # (Manual) (1.3-7.7) k/uL Lymphocytes # (Manual) (1.0-4.8) k/uL Metamyelocytes # (Man) (0) k/uL ABG pH (7.35-7.45) ABG pO2 (83-108) mmHg ABG HCO3 (21-25) mmol/L ABG Total CO2 (19-24) mmol/L ABG O2 Saturation (94-97) % Sodium (137-145) mmol/L Potassium (3.5-5.1) mmol/L Chloride (98-107) mmol/L Carbon Dioxide (22-30) mmol/L BUN (7-17) mg/dL Creatinine (0.52-1.04) mg/dL Glucose (74-99) mg/dL POC Glucose (mg/dL) 23 L <20 L <20 L (75-99) mg/dL Plasma Lactic Acid Kosta (0.7-2.0) mmol/L Calcium (8.4-10.2) mg/dL Magnesium (1.6-2.3) mg/dL Total Bilirubin (0.2-1.3) mg/dL AST (14-36) U/L ALT (4-34) U/L Alkaline Phosphatase (38-126) U/L Total Protein (6.3-8.2) g/dL Albumin (3.5-5.0) g/dL Urine Appearance (Clear) Urine Protein (Negative) Urine Blood (Negative) Ur Leukocyte Esterase (Negative) Urine WBC (0-5) /hpf Urine WBC Clumps (None) /hpf Urine Bacteria (None) /hpf Urine Mucus (None) /hpf U Benzodiazepines Scrn (NotDetected) 07/03/21 07/03/21 07/03/21 Range/Units 02:56 03:09 03:09 WBC 16.4 H (3.8-10.6) k/uL RBC 2.94 L (3.80-5.40) m/uL Hgb 9.5 L (11.4-16.0) gm/dL Hct 30.8 L (34.0-46.0) % MCV 104.7 H D (80.0-100.0) fL MCHC 30.9 L (31.0-37.0) g/dL Plt Count 24 L D (150-450) k/uL Neutrophils # (Manual) 12.10 H (1.3-7.7) k/uL Lymphocytes # (Manual) (1.0-4.8) k/uL Metamyelocytes # (Man) (0) k/uL ABG pH (7.35-7.45) ABG pO2 (83-108) mmHg ABG HCO3 (21-25) mmol/L ABG Total CO2 (19-24) mmol/L ABG O2 Saturation (94-97) % Sodium 135 L (137-145) mmol/L Potassium (3.5-5.1) mmol/L Chloride (98-107) mmol/L Carbon Dioxide 6 L* (22-30) mmol/L BUN 46 H (7-17) mg/dL Creatinine 3.36 H (0.52-1.04) mg/dL Glucose 489 H (74-99) mg/dL POC Glucose (mg/dL) 239 H (75-99) mg/dL Plasma Lactic Acid Kosta (0.7-2.0) mmol/L Calcium 6.5 L (8.4-10.2) mg/dL Magnesium 2.9 H (1.6-2.3) mg/dL Total Bilirubin 1.6 H (0.2-1.3) mg/dL AST 1976 H (14-36) U/L ALT 1265 H (4-34) U/L Alkaline Phosphatase 577 H (38-126) U/L Total Protein 4.7 L (6.3-8.2) g/dL Albumin 2.0 L (3.5-5.0) g/dL Urine Appearance (Clear) Urine Protein (Negative) Urine Blood (Negative) Ur Leukocyte Esterase (Negative) Urine WBC (0-5) /hpf Urine WBC Clumps (None) /hpf Urine Bacteria (None) /hpf Urine Mucus (None) /hpf U Benzodiazepines Scrn (NotDetected) 07/03/21 07/03/21 Range/Units 03:21 03:23 WBC (3.8-10.6) k/uL RBC (3.80-5.40) m/uL Hgb (11.4-16.0) gm/dL Hct (34.0-46.0) % MCV (80.0-100.0) fL MCHC (31.0-37.0) g/dL Plt Count (150-450) k/uL Neutrophils # (Manual) (1.3-7.7) k/uL Lymphocytes # (Manual) (1.0-4.8) k/uL Metamyelocytes # (Man) (0) k/uL ABG pH 6.85 L* (7.35-7.45) ABG pO2 50 L* (83-108) mmHg ABG HCO3 7 L* (21-25) mmol/L ABG Total CO2 8 L (19-24) mmol/L ABG O2 Saturation 58.0 L (94-97) % Sodium (137-145) mmol/L Potassium (3.5-5.1) mmol/L Chloride (98-107) mmol/L Carbon Dioxide (22-30) mmol/L BUN (7-17) mg/dL Creatinine (0.52-1.04) mg/dL Glucose (74-99) mg/dL POC Glucose (mg/dL) <20 L (75-99) mg/dL Plasma Lactic Acid Kosta (0.7-2.0) mmol/L Calcium (8.4-10.2) mg/dL Magnesium (1.6-2.3) mg/dL Total Bilirubin (0.2-1.3) mg/dL AST (14-36) U/L ALT (4-34) U/L Alkaline Phosphatase (38-126) U/L Total Protein (6.3-8.2) g/dL Albumin (3.5-5.0) g/dL Urine Appearance (Clear) Urine Protein (Negative) Urine Blood (Negative) Ur Leukocyte Esterase (Negative) Urine WBC (0-5) /hpf Urine WBC Clumps (None) /hpf Urine Bacteria (None) /hpf Urine Mucus (None) /hpf U Benzodiazepines Scrn (NotDetected) Microbiology - Last 24 Hours (Table) 07/02/21 15:05 Blood Culture Gram Stain - Preliminary Blood Blood Culture - Preliminary Gram Neg Bacilli 07/02/21 15:17 Blood Culture Gram Stain - Preliminary Blood 07/02/21 15:05 Blood Culture - Final Blood 07/02/21 15:17 Blood Culture - Final Blood 07/02/21 15:15 Urine Culture - Preliminary Urine,Voided Thrombosis Risk Factor Assmnt - Choose All That Apply Each Factor Represents 1 point: Age 41-60 years, Sepsis (< 1month) Thrombosis Risk Factor Assessment Total Risk Factor Score: 2 Thrombosis Risk Factor Assessment Level: Low Risk
--- NOTE | 2021-07-03 13:15 | P.DS ---
Providers Date of admission: 07/02/21 17:58 Attending physician: David Hough Consults: 07/02/21 17:58 Consult Physician Stat Consulting Provider: Bin Dudley Consult Reason/Comments: septic shock Do you want consulting provider notified?: Already Contacted Primary care physician: [facility] Course: 56-year-old male, history of Sjogren's disease, presented to ED with altered mentation, lethargy, weakness. In the ED patient was found to be hypotensive and tachycardic. The patient was septic. Blood work showed a white cell count of 14.1 with a hemoglobin of 10.4 and a platelet count of 93. Urine was at 49 with a creatinine of 3.1 consistent with an acute kidney injury. Serum bicarb was at 13 and the sodium level was at 132. Lactic acid level is at 6.3. Troponins are negative, ammonia level is less than 9, LFTs show a normal AST, normal ALT, alkaline phosphatase is slightly elevated at 746 with a total bilirubin level of 1.4. Urine drug screen is been negative.: The UA was abnormal and the patient had clumps of white cells along with elevated WBCs and it was positive for +2 protein, negative RBCs, large amount of urine leukocyte esterase was present. Patient was diagnosed and UTI. She was given immediately a total of 4 L of IV fluids; was given a combination of antibiotics including cefepime and vancomycin and admitted to ICU. 1 septic shock secondary to a UTI 2 profound hypotension secondary to sepsis, received a total of 4 L of IV fluids and the patient is currently on pressors. Triple-lumen catheter was established. 3 altered mental status secondary to above 4 acute kidney injury secondary to above, this is a secondary to sepsis, hypotension, could be also related to use of vivienne inhibitors on outpatient basis. 5 severe lactic acidosis with anion gap metabolic acidosis secondary to above 6 leukocytosis, acute secondary to above She was started on IV pressors and received multiple IVF boluses. Whilst in the ICU, the patient developed bradycardia and susbequently PEA for which ACLS protocol was initiated. High quality CPR was performed. The patient was noted to be in PEA. CPR was initially performed from 0229 unti ROSC at 0252. She subsequently developed asystole again at 318, after which CPR was eventually halted at 033 and the patient was declared . Patient Condition at Discharge: Serious Plan - Discharge Summary Discharge Rx Participant: Yes New Discharge Prescriptions: No Action amLODIPine [Norvasc] 5 mg PO DAILY Omeprazole [PriLOSEC] 20 mg PO BID Hydroxychloroquine Sulfate [Plaquenil] 200 mg PO BID Cevimeline [Evoxac] 30 mg PO HS Multivitamins, Thera [Multivitamin] 1 tab PO DAILY lisinopriL [Prinivil] 20 mg PO DAILY Doxycycline Hyclate 20mg 20 mg PO HS PRN PRN Reason: periodontitis pain Doxycycline Hyclate 20mg 20 mg PO DAILY D-Methorphan/PE/Acetaminophen [Vicks Dayquil Liquicaps] 1 cap PO DAILY PRN PRN Reason: Cold Symptoms Ibuprofen [Motrin Ib] 200 - 400 mg PO Q8H PRN PRN Reason: Pain [place]-3 Fatty Acids/Fish Oil [Fish Oil 1,000 mg Softgel] 1 cap PO DAILY Potassium Chloride ER [K-Dur 20] 20 meq PO DAILY cycloSPORINE 0.05% OPHTH SOLN [Restasis] 1 applic BOTH EYES BID Calcium Gummies (Unknown Strength) 2 tab PO DAILY Carboxymethylcellulose Sodium [Refresh Tears] 1 drop BOTH EYES QID PRN PRN Reason: dry eyes LORazepam [Ativan] 0.5 mg PO DAILY PRN PRN Reason: Anxiety Magnesium 250 mg PO DAILY Discharge Medication List Cevimeline [Evoxac] 30 mg PO HS 05/31/14 [History] Hydroxychloroquine Sulfate [Plaquenil] 200 mg PO BID 05/31/14 [History] Multivitamins, Thera [Multivitamin] 1 tab PO DAILY 05/31/14 [History] Omeprazole [PriLOSEC] 20 mg PO BID 05/31/14 [History] amLODIPine [Norvasc] 5 mg PO DAILY 05/31/14 [History] lisinopriL [Prinivil] 20 mg PO DAILY 05/31/14 [History] Calcium Gummies (Unknown Strength) 2 tab PO DAILY 07/02/21 [History] Carboxymethylcellulose Sodium [Refresh Tears] 1 drop BOTH EYES QID PRN 07/02/21 [History] D-Methorphan/PE/Acetaminophen [Vicks Dayquil Liquicaps] 1 cap PO DAILY PRN 07/02/21 [History] Doxycycline Hyclate 20mg 20 mg PO DAILY 07/02/21 [History] Doxycycline Hyclate 20mg 20 mg PO HS PRN 07/02/21 [History] Ibuprofen [Motrin Ib] 200 - 400 mg PO Q8H PRN 07/02/21 [History] LORazepam [Ativan] 0.5 mg PO DAILY PRN 07/02/21 [History] Magnesium 250 mg PO DAILY 07/02/21 [History] [place]-3 Fatty Acids/Fish Oil [Fish Oil 1,000 mg Softgel] 1 cap PO DAILY 07/02/21 [History] Potassium Chloride ER [K-Dur 20] 20 meq PO DAILY 07/02/21 [History] cycloSPORINE 0.05% OPHTH SOLN [Restasis] 1 applic BOTH EYES BID 07/02/21 [History] Follow up Appointment(s)/Referral(s): Ben Plaza III, MD [Primary Care Provider] - 1-2 days Discharge Disposition: - Preliminary Cause of Preliminary Cause of : septic shock
== END 2021-07-03 05:43 | disposition expired | DRG 871 ==
LOC: EC 14:52 → 2SICU 17:58
PROVIDERS: ADMIT Hospitalist; ATTEND Hospitalist
PROC: 3E043XZ Introduction of Vasopressor into Central Vein, Percutaneous Approach (ICD-10-PCS; principal; 2021-07-02)
PROC: 02HV33Z Insertion of Infusion Device into Superior Vena Cava, Percutaneous Approach (ICD-10-PCS; 2021-07-02)
PROC: 5A12012 Performance of Cardiac Output, Single, Manual (ICD-10-PCS; 2021-07-03)
DX: A41.9 Sepsis, unspecified organism (principal); R65.21 Severe sepsis with septic shock; E87.1 Hypo-osmolality and hyponatremia; E87.2 Acidosis; N17.9 Acute kidney failure, unspecified; N39.0 Urinary tract infection, site not specified; E16.2 Hypoglycemia, unspecified; F41.9 Anxiety disorder, unspecified; I10 Essential (primary) hypertension; K21.9 Gastro-esophageal reflux disease without esophagitis; I46.9 Cardiac arrest, cause unspecified; M35.00 Sjogren syndrome, unspecified; Z20.822 Contact with and (suspected) exposure to COVID-19; Z79.899 Other long term (current) drug therapy; Z98.51 Tubal ligation status; Z98.42 Cataract extraction status, left eye; Z98.41 Cataract extraction status, right eye; Z98.890 Other specified postprocedural states; Z78.1 Physical restraint status
CPT/HCPCS: 36415; 36556; 36600; 70450; 71045; 80053; 80306; 80320; 81001; 82140; 82805; 83605; 83735; 84484; 85025; 85610; 85730; 87040; 87077; 87086; 87186; 87636; 93005; 94002; 96365; 96366; 99291